=== PATIENT | male | born 1990 | race African-American/Black ===

== ENCOUNTER 2016-09-25 09:51 | Emergency (ER) | payer SELFPAY ==
[~2016-09-25] VITALS: Ht 177.8 cm; Wt 76.3 kg
[2016-09-25] MEDS ORDERED: ZITHROMAX500 MG PO (11:17)
[2016-09-25 11:36] VITALS: BP 117/86
== END 2016-09-25 11:38 | disposition home or self-care (01) ==
LOC: EME 09:51
DX: J02.0 Streptococcal pharyngitis (principal)
CPT/HCPCS: 87651 90; 99281; 99283; J1100

== ENCOUNTER 2016-09-29 00:08 | Emergency (ER) | payer SELFPAY ==
[~2016-09-29] VITALS: Ht 177.8 cm; Wt 76.2 kg
[~2016-09-29 00:08] MED LIST: ZITHROMAX500 MG PO
[2016-09-29 02:53] LABS: INTERNAL CONTROL VALID? YES; MONOSPOT (MONONUCLEOSIS SEROL) NEGATIVE
[2016-09-29] MEDS ORDERED: CEFTIN250 MG PO (03:08)
[2016-09-29 04:09] VITALS: BP 136/86
== END 2016-09-29 04:10 | disposition home or self-care (01) ==
LOC: EME 00:08
PROVIDERS: Physician Assistant
DX: J02.0 Streptococcal pharyngitis (principal); F17.200 Nicotine dependence, unspecified, uncomplicated
CPT/HCPCS: 86308; 99281; 99284